=== PATIENT | male | born 1985 ===

== ENCOUNTER 2022-01-07 09:42 | Inpatient (IN) | payer OTHER ==
[2022-01-07] MEDS: Lactated Ringers 1,000 ML IV SCH ×2 (11:50→21:41)
[2022-01-07] MEDS ORDERED: Scopolamine 1.5 MG Transdermal Patch TRDERM PRN (12:27)
[2022-01-07] MEDS ORDERED: Lidocaine 1%/Sod Bicarbonate in NS 8.4% 1 ML Syringe IDERM PRN (12:35)
[2022-01-07] MEDS ORDERED: Sodium Chloride 0.9% 10 ML Syringe FLUSH PRN (12:35)
[2022-01-07] MEDS ORDERED: Bupivacaine 0.5%/EPINEPHrine 1:200,000 50 ML MDV ONE (13:00)
[2022-01-07] MEDS ORDERED: Lidocaine 1% 4 ML ONE (13:08)
[2022-01-07] MEDS ORDERED: Rocuronium 50 MG/5 ML Vial ONE ×2 (13:08→15:39)
[2022-01-07] MEDS ORDERED: Propofol 200 MG/20 ML SDV ONE (13:08)
[2022-01-07] MEDS ORDERED: Midazolam 1 MG/ML 2 ML SDV ONE (13:11)
[2022-01-07] MEDS ORDERED: fentaNYL 100 MCG/2 ML SDV ONE ×3 (13:11→15:39)
[2022-01-07] MEDS ORDERED: fentaNYL 250 MCG/5 ML SDV ONE (13:12)
[2022-01-07] MEDS ORDERED: Albuterol 0.083% 2.5 MG/3 ML Neb Soln NEB ONE (13:30)
[2022-01-07] MEDS ORDERED: Lactated Ringers 1,000 ML ONE ×2 (13:58→15:52)
[2022-01-07] MEDS ORDERED: Piperacillin/Tazobactam 4.5 GM in Sodium Chloride 0.9% 100 ML IV ONE (14:15)
[2022-01-07] MEDS ORDERED: HYDROmorphone 0.5 MG/0.5 ML Syringe ONE ×2 (14:27→15:32)
[2022-01-07] MEDS ORDERED: Ondansetron 4 MG/2 ML SDV ONE (16:19)
[2022-01-07] MEDS ORDERED: Sugammadex Sodium 200 MG/2 ML VIAL ONE (16:19)
[2022-01-07] MEDS ORDERED: Ondansetron 4 MG/2 ML SDV IVPUSH PRN (16:57)
[2022-01-07] MEDS ORDERED: diphenhydrAMINE 50 MG/ML SDV IVPUSH PRN (16:57)
[2022-01-07] MEDS ORDERED: HYDROmorphone 0.5 MG/0.5 ML Syringe IVPUSH PRN (16:57)
[2022-01-07] MEDS: fentaNYL 100 MCG/2 ML SDV IVPUSH PRN ×2 (17:09→17:15)
[2022-01-07] MEDS: Acetaminophen 325 MG Tab PO SCH ×2 (18:34→23:26)
[2022-01-07] MEDS: HYDROmorphone 0.5 MG/0.5 ML Syringe IVPUSH PRN ×2 (18:56→21:41)
[2022-01-07] MEDS ORDERED: Sodium Chloride 0.9% 10 ML Syringe FLUSH SCH (21:00)
[2022-01-08] MEDS: HYDROmorphone 0.5 MG/0.5 ML Syringe IVPUSH PRN ×2 (01:15→11:30)
[2022-01-08] MEDS: Acetaminophen/HYDROcodone 325-5 MG Tab PO PRN ×3 (03:48→21:32)
[2022-01-08] MEDS: Acetaminophen 325 MG Tab PO SCH ×3 (06:01→16:53)
[2022-01-08] MEDS ORDERED: D5 1/2 NS w/ 20 mEq/L KCl 1,000 ML IV SCH (07:45)
[2022-01-08] MEDS ORDERED: Polyethylene Glycol 3350 Powder 17 GM Packet PO PRN (09:00)
[2022-01-08] MEDS ORDERED: Prazosin 1 MG Cap PO PRN (21:01)
[2022-01-08] MEDS ORDERED: Nortriptyline 25 MG Cap PO SCH (21:30)
[2022-01-09] MEDS: Acetaminophen 325 MG Tab PO SCH ×3 (00:12→10:16)
[2022-01-09] MEDS: Acetaminophen/HYDROcodone 325-5 MG Tab PO PRN ×2 (03:08→08:32)
[2022-01-09] MEDS ORDERED: Pantoprazole 40 MG Tab.CR PO SCH (06:00)
[2022-01-09] MEDS ORDERED: OMEPRAZOLE 40MG **PT OWN PO SCH (07:00)
[2022-01-09] MEDS ORDERED: Melatonin 3 MG Tab PO PRN (07:09)
== END 2022-01-09 10:45 | disposition home or self-care (01) | DRG 349 ==
LOC: JD.MS 10:51
PROVIDERS: ADMIT Surgery; ATTEND Surgery
PROC: 0DBA4ZZ Excision of Jejunum, Percutaneous Endoscopic Approach (ICD-10-PCS; principal; 2022-01-07)
DX: K56.1 Intussusception (principal); F41.9 Anxiety disorder, unspecified; F32.A Depression, unspecified; F17.200 Nicotine dependence, unspecified, uncomplicated; J30.9 Allergic rhinitis, unspecified; F43.10 Post-traumatic stress disorder, unspecified
CPT/HCPCS: 00790; 36415; 80048; 85025; A9270-GY; J1170; J2250; J2405; J2543; J2704; J3010; J3480; J3490; J7120